=== PATIENT | female | born 1970 | race Two or more races ===

== ENCOUNTER 2023-07-02 00:24 | Emergency (ER) | payer OTHER ==
[2023-07-02] MEDS ORDERED: Acetaminophen 325 MG Tab PO ONE (00:29)
[2023-07-02] MEDS ORDERED: Ibuprofen 400 MG Tab PO ONE (02:06)
== END 2023-07-02 02:32 | disposition home or self-care (01) ==
LOC: JD.ED 00:24
DX: S29.012A Strain of muscle and tendon of back wall of thorax, initial encounter (principal); S16.1XXA Strain of muscle, fascia and tendon at neck level, initial encounter; S00.03XA Contusion of scalp, initial encounter; V89.2XXA Person injured in unspecified motor-vehicle accident, traffic, initial encounter
CPT/HCPCS: 70450; 71045; 72125; 73030; 99284; A9270; 99282